=== PATIENT | female | born 2000 | race Caucasian/White ===

== ENCOUNTER 2019-11-09 15:53 | Emergency (ER) | payer OTHER, BC ==
[~2019-11-09] VITALS: Ht 167.6 cm; Wt 102.1 kg
--- OUTSIDE RECORDS SUMMARY | ~2019-11-09 | XMS ---
Demographics + + + | Address | [address] | | | [place] [address] | + + + | Home Phone | | + + + | Preferred Language | Unknown | + + + | Marital Status | Never | + + + | Sabianism Affiliation | Unknown | + + + | Race | White | + + + | Ethnic Group | Not or | + + + Author + + + | Author | [facility] | + + + | Organization | [facility] | + + + | Address | [address] | | | [place] [address] | + + + | Phone | | + + + Care Team Providers + + + + | Care Metal Crafts Teacher Name | Role | Phone | + + + + | Khloe Cummings PCP | | + + + + | Ivon Foster | PreferredProvider | | + + + + Allergies and Adverse Reactions + + + + | Name | Reaction | Notes | + + + + | NO KNOWN DRUG ALLERGIES | | | + + + + | [place] | | | + + + + | Grasses | | | + + + + | Weeds | | | + + + + | Trees | | | + + + + | Other Food or Environmental | | WEEDS TREES AND GRASS - | | Allergies | | [employer] 06/25/2016 | + + + + Plan of Treatment Not available. Medications +---------+ | | +---------+ + + + + + + | Name | Start Date | Expiration Date | SIG | Comments | + + + + + + | Singulair 10 mg | 10/16/2014 | 03/15/2015 | take 1 tablet | | | oral tablet | | | (10 mg) by oral | | | | | | route once | | | | | | daily in the | | | | | | evening for 30 | | | | | | days | | + + + + + + | ProAir HFA 90 | 10/16/2014 | 03/15/2015 | 2 puffs every 4 | | | mcg/actuation | | | hrs as needed | | | inhalation HFA | | | for shortness | | | aerosol inhaler | | | of breath or | | | | | | cough | | + + + + + + | Zithromax Z-Reji | 03/08/2016 | 03/13/2016 | take 2 tablets | | | 250 mg oral | | | (500 mg) by | | | tablet | | | oral route once | | | | | | daily for 1 | | | | | | day then 1 | | | | | | tablet (250 mg) | | | | | | by oral route | | | | | | once daily for | | | | | | 4 days | | + + + + + + | Zofran ODT 8 mg | 06/25/2016 | 06/28/2016 | take 1 tab po Q | | | oral | | | 8 hrs prn | | | tablet,disinteg | | | nausea and | | | rating | | | vomiting | | + + + + + + Problem List + +--------+ + | Description | Status | Onset | + +--------+ + | Hip pain | Active | 03/18/2014 | + +--------+ + | Dizziness | Active | 03/18/2014 | + +--------+ + | Allergic rhinitis | Active | 10/16/2014 | + +--------+ + | Asthma | Active | 10/16/2014 | + +--------+ + | 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 | 175 | 66. | | 27. | 1.9 | 90. | 98 | | 5/2 | 1:0 | | mmH | bpm | rpm | 2 F | | 5 | | 822 | 299 | 2 % | % | | 018 | 0 | mmH | g | | | | lbs | in | | 3 | | | | | | AM | g | | | | | | | | kg/ | m | | | | | | | | | | | | | | m | | | | +-----+-----+-----+-----+-----+-----+-----+-----+-----+----+-----+-----+-----+-----+ | 3/1 | 10: | 110 | 70 | 80 | 20 | 97. | 174 | 66 | | 28. | 1.9 | 91. | | | 0/2 | 09: | | mmH | bpm | rpm | 6 F | | in | | 08 | 2 | 8 % | | | 017 | 00 | mmH | g | | | | lbs | | | kg/ | m2 | | | | | AM | g | | | | | | | | m2 | | | | +-----+-----+-----+-----+-----+-----+-----+-----+-----+----+-----+-----+-----+-----+ | 11/ | 4:3 | 110 | 68 | 87 | 20 | 97. | 183 | 66 | | 29. | 1.9 | 94. | 99 | | 21/ | 6:0 | | mmH | bpm | rpm | 2 F | | in | | 536 | 661 | 3 % | % | | 201 | 0 | mmH | g | | | | lbs | | | 7 | | | | | 6 | PM | g | | | | | | | | kg/ | m | | | | | | | | | | | | | | m | | | | +-----+-----+-----+-----+-----+-----+-----+-----+-----+----+-----+-----+-----+-----+ | 9/2 | 9:4 | 118 | 72 | 116 | 20 | 96. | 149 | 66 | | 24. | 1.7 | 81. | 97 | | 8/2 | 8:0 | | mmH | | rpm | 9 F | .5 | in | | 13 | 8 | 1 % | % | | 015 | 0 | mmH | g | bpm | | | lbs | | | kg/ | m2 | | | | | AM | g | | | | | | | | m2 | | | | +-----+-----+-----+-----+-----+-----+-----+-----+-----+----+-----+-----+-----+-----+ | 7/1 | 8:5 | 110 | 70 | 70 | 20 | 98 | 158 | 66. | | 24. | 1.8 | 85. | 97 | | /20 | 1:0 | | mmH | bpm | rpm | F | | 75 | | 931 | 372 | 5 % | % | | 15 | 0 | mmH | g | | | | lbs | in | | 8 | | | | | | AM | g | | | | | | | | kg/ | m | | | | | | | | | | | | | | m | | | | +-----+-----+-----+-----+-----+-----+-----+-----+-----+----+-----+-----+-----+-----+ | 5/7 | 3:0 | 106 | 72 | 98 | 26 | 98. | 156 | 65. | | 25. | 1.8 | 87. | 98 | | /20 | 8:0 | | mmH | bpm | rpm | 4 F | | 75 | | 37 | 1 | 4 % | % | | 15 | 0 | mmH | g | | | | lbs | in | | kg/ | m2 | | | | | PM | g | | | | | | | | m2 | | | | +-----+-----+-----+-----+-----+-----+-----+-----+-----+----+-----+-----+-----+-----+ | 12/ | 8:4 | 112 | 70 | 87 | 22 | 98. | 168 | 65. | | 27. | 1.8 | 92. | 97 | | 1/2 | 9:0 | | mmH | bpm | rpm | 5 F | | 9 | | 198 | 823 | 8 % | % | | 014 | 0 | mmH | g | | | | lbs | in | | | | | | | | AM | g | | | | | | | | kg/ | m | | | | | | | | | | | | | | m | | | | +-----+-----+-----+-----+-----+-----+-----+-----+-----+----+-----+-----+-----+-----+ Social History + + + + | Name | Description | Comments | + + + + | In tenth grade | | | + + + + | Lives With | | 03/06/2014 - belkis Garcia - | | | | sister María Elena oh | | | | [place] | + + + + | Parents | | | + + + + | Tobacco | Never smoker | | + + + + | Exercises 1-3 times a week | | - [employer] 06/25/2016 | + + + + | In High School | | - [employer] 06/25/2016 | + + + + History of Procedures + + + + | Date Ordered | Description | Order Status | + + + + | 08/22/2014 12:00 AM | MEASURE BLOOD OXYGEN LEVEL | Reviewed | + + + + | 10/16/2014 12:00 AM | MEASURE BLOOD OXYGEN LEVEL | Reviewed | + + + + | 01/13/2015 12:00 AM | MEASURE BLOOD OXYGEN LEVEL | Reviewed | + + + + | 03/08/2016 12:00 AM | MEASURE BLOOD OXYGEN LEVEL | Reviewed | + + + + | 06/25/2016 10:50 AM | URINALYSIS NONAUTO W/O | Reviewed | | | SCOPE | | + + + + | 06/25/2016 10:51 AM | URINE TEST | Reviewed | + + + + | 06/25/2016 12:00 AM | US EXAM ABDOM COMPLETE | Reviewed | + + + + | 06/25/2016 12:00 AM | ECHO EXAM OF ABDOMEN | Reviewed | + + + + Results Summary + + + | Date and Description | Results | + + + | 06/25/2016 10:50 AM | Glucose. Negative Bilirubin. Negative | | | Ketones Moderate 40 Spec Grav 1.030 PH 6.0 | | | Protein Trace Urobilinogen 0.2 Nitrites | | | Negative Leukocyte Est Negative Urine | | | Color yellow Blood Trace, non-hemolyzed | + + + | 06/25/2016 10:51 AM | test Negative | + + + History Of Immunizations +-------+-------+-------+------+-------+------+-------+-------+-------+-------+-----+ | Name | Date | Mfg | Mfg | Trade | Lot# | Route | Inj | Vis | Vis | CVX | | | Admin | Name | Code | Name | | | | Given | Pub | | +-------+-------+-------+------+-------+------+-------+-------+-------+-------+-----+ | DTaP | 08/29/ | Not | NE | Not | | Not | Not | | | 107 | | | 1999 | Enter | | Enter | | Enter | Enter | 001 | 001 | | | | | ed | | ed | | ed | ed | | | | +-------+-------+-------+------+-------+------+-------+-------+-------+-------+-----+ | DTaP | 10/15/ | Not | NE | Not | | Not | Not | | | 107 | | | 1999 | Enter | | Enter | | Enter | Enter | 001 | 001 | | | | | ed | | ed | | ed | ed | | | | +-------+-------+-------+------+-------+------+-------+-------+-------+-------+-----+ | DTaP | 12/31/ | Not | NE | Not | | Not | Not | | | 107 | | | 1999 | Enter | | Enter | | Enter | Enter | 001 | 001 | | | | | ed | | ed | | ed | ed | | | | +-------+-------+-------+------+-------+------+-------+-------+-------+-------+-----+ | DTaP | | Not | NE | Not | | Not | Not | | | 107 | | | 000 | Enter | | Enter | | Enter | Enter | 001 | 001 | | | | | ed | | ed | | ed | ed | | | | +-------+-------+-------+------+-------+------+-------+-------+-------+-------+-----+ | DTaP | | Not | NE | Not | | Not | Not | | | 107 | | | 004 | Enter | | Enter | | Enter | Enter | 001 | 001 | | | | | ed | | ed | | ed | ed | | | | +-------+-------+-------+------+-------+------+-------+-------+-------+-------+-----+ | Tdap | | Not | NE | Not | | Not | Not | | | 115 | | | 010 | Enter | | Enter | | Enter | Enter | 001 | 001 | | | | | ed | | ed | | ed | ed | | | | +-------+-------+-------+------+-------+------+-------+-------+-------+-------+-----+ | Hib | 08/29/ | Not | NE | Not | | Not | Not | | | 17 | | | 1999 | Enter | | Enter | | Enter | Enter | 001 | 001 | | | | | ed | | ed | | ed | ed | | | | +-------+-------+-------+------+-------+------+-------+-------+-------+-------+-----+ | Hib | 10/15/ | Not | NE | Not | | Not | Not | | | 17 | | | 1999 | Enter | | Enter | | Enter | Enter | 001 | 001 | | | | | ed | | ed | | ed | ed | | | | +-------+-------+-------+------+-------+------+-------+-------+-------+-------+-----+ | Hib | 12/31/ | Not | NE | Not | | Not | Not | 0 | 0 | 17 | | | 1999 | Enter | | Enter | | Enter | Enter | 001 | 001 | | | | | ed | | ed | | ed | ed | | | | +-------+-------+-------+------+-------+------+-------+-------+-------+-------+-----+ | Hib | | Not | NE | Not | | Not | Not | 0 | 0 | 17 | | | 000 | Enter | | Enter | | Enter | Enter | 001 | 001 | | | | | ed | | ed | | ed | ed | | | | +-------+-------+-------+------+-------+------+-------+-------+-------+-------+-----+ | HepB | 08/29/ | Not | NE | Not | | Not | Not | 0 | 0 | 08 | | | 1999 | Enter | | Enter | | Enter | Enter | 001 | 001 | | | | | ed | | ed | | ed | ed | | | | +-------+-------+-------+------+-------+------+-------+-------+-------+-------+-----+ | HepB | 12/31/ | Not | NE | Not | | Not | Not | | | 08 | | | 1999 | Enter | | Enter | | Enter | Enter | 001 | 001 | | | | | ed | | ed | | ed | ed | | | | +-------+-------+-------+------+-------+------+-------+-------+-------+-------+-----+ | HepB | 06/29/ | Not | NE | Not | | Not | Not | | | 08 | | | 2000 | Enter | | Enter | | Enter | Enter | 001 | 001 | | | | | ed | | ed | | ed | ed | | | | +-------+-------+-------+------+-------+------+-------+-------+-------+-------+-----+ | HepB | 03/06 | Not | NE | Not | | Not | Not | | | 999 | | | /2013 | Enter | | Enter | | Enter | Enter | 001 | 001 | | | | | ed | | ed | | ed | ed | | | | +-------+-------+-------+------+-------+------+-------+-------+-------+-------+-----+ | IPV | 08/29/ | Not | NE | Not | | Not | Not | 0 | | 10 | | | 1999 | Enter | | Enter | | Enter | Enter | 001 | 001 | | | | | ed | | ed | | ed | ed | | | | +-------+-------+-------+------+-------+------+-------+-------+-------+-------+-----+ | IPV | 10/15/ | Not | NE | Not | | Not | Not | | | 10 | | | 1999 | Enter | | Enter | | Enter | Enter | 001 | 001 | | | | | ed | | ed | | ed | ed | | | | +-------+-------+-------+------+-------+------+-------+-------+-------+-------+-----+ | IPV | | Not | NE | Not | | Not | Not | | | 10 | | | 000 | Enter | | Enter | | Enter | Enter | 001 | 001 | | | | | ed | | ed | | ed | ed | | | | +-------+-------+-------+------+-------+------+-------+-------+-------+-------+-----+ | IPV | | Not | NE | Not | | Not | Not | | | 10 | | | 004 | Enter | | Enter | | Enter | Enter | 001 | 001 | | | | | ed | | ed | | ed | ed | | | | +-------+-------+-------+------+-------+------+-------+-------+-------+-------+-----+ | MMR | 06/29/ | Not | NE | Not | | Not | Not | | | 03 | | | 2000 | Enter | | Enter | | Enter | Enter | 001 | 001 | | | | | ed | | ed | | ed | ed | | | | +-------+-------+-------+------+-------+------+-------+-------+-------+-------+-----+ | MMR | | Not | NE | Not | | Not | Not | | | 03 | | | 004 | Enter | | Enter | | Enter | Enter | 001 | 001 | | | | | ed | | ed | | ed | ed | | | | +-------+-------+-------+------+-------+------+-------+-------+-------+-------+-----+ | Varic | 06/29/ | Not | NE | Not | | Not | Not | | | 21 | | albert | 2000 | Enter | | Enter | | Enter | Enter | 001 | 001 | | | | | ed | | ed | | ed | ed | | | | +-------+-------+-------+------+-------+------+-------+-------+-------+-------+-----+ | Varic | 11/01/ | Not | NE | Not | | Not | Not | 0 | | 21 | | albert | 2008 | Enter | | Enter | | Enter | Enter | 001 | 001 | | | | | ed | | ed | | ed | ed | | | | +-------+-------+-------+------+-------+------+-------+-------+-------+-------+-----+ | Hep A | 07/07/ | Not | NE | Not | | Not | Not | 0 | 0 | 83 | | | 2001 | Enter | | Enter | | Enter | Enter | 001 | 001 | | | | | ed | | ed | | ed | ed | | | | +-------+-------+-------+------+-------+------+-------+-------+-------+-------+-----+ | Hep A | | Not | NE | Not | | Not | Not | 0 | 0 | 83 | | | 002 | Enter | | Enter | | Enter | Enter | 001 | 001 | | | | | ed | | ed | | ed | ed | | | | +-------+-------+-------+------+-------+------+-------+-------+-------+-------+-----+ | Menac | | Not | NE | Not | | Not | Not | | | 136 | | tra | 010 | Enter | | Enter | | Enter | Enter | 001 | 001 | | | | | ed | | ed | | ed | ed | | | | +-------+-------+-------+------+-------+------+-------+-------+-------+-------+-----+ | Flu | 02/07 | Not | NE | Not | | Not | Not | | | 141 | | 3+ | /2007 | Enter | | Enter | | Enter | Enter | 001 | 001 | | | years | | ed | | ed | | ed | ed | | | | +-------+-------+-------+------+-------+------+-------+-------+-------+-------+-----+ History of Past Illness + + + + | Name | Date of Onset | Comments | + + + + | Asthma | | | + + + + | Pneumonia | | | + + + + | Hip pain | 03/18/2014 | | + + + + | Dizziness | 03/18/2014 | | + + + + | Allergic rhinitis | 10/16/2014 | | + + + + | Asthma | 10/16/2014 | | + + + + | Bronchiolitis | | - [facility] 06/25/2016 | + + + + | Pneumonia | | - [facility] 06/25/2016 | + + + + | Asthma | | - [facility] 06/25/2016 | + + + + | Allergies | | - [facility] 06/25/2016 | + + + + | Croup | | - [facility] 06/25/2016 | + + + + | Tonsillitis, Acute | | - [facility] 06/25/2016 | + + + + | Pityriasis Rosea | 06/05/2017 | | + + + + | Hip pain | Mar 18 2014 8:44AM | | + + + + | Dizziness | Mar 18 2014 8:44AM | | + + + + | Bilateral Eustachian Tube | Aug 22 2014 3:05PM | | | Dysfunction | | | + + + + | Allergic Rhinitis | Oct 16 2014 8:46AM | | + + + + | Asthma | Richard 2014 8:46AM | | + + + + | Bronchitis, Acute | Jan 13 2015 9:48AM | | + + + + | Bronchitis | Nov 2015 4:31PM | | + + + + | Gastroenteritis presumed | Jun 25 2016 10:09AM | | | infectious | | | + + + + | Abdominal pain, left upper | Jun 25 2016 10:09AM | | | quadrant | | | + + + + | Pityriasis Rosea | Feb 2017 8:48AM | | + + + + Payers + + + +--------+ +---------+ + | Insurance | Company | Plan Name | Plan | Policy | Policy | Start Date | | Name | Name | | Number | Number | Group | | | | | | | | Number | | + + + +--------+ +---------+ + | | [place] | | [id number] | | N/A | | | Healthcare | Healthcare | | | | | + + + +--------+ +---------+ + History of Encounters + + + + | Visit Date | Visit Type | Provider | + + + + | 06/02/2017 | Acute Illness | Khloe Gelacio Cummings PARTS CLASSIFIER | + + + + | 06/25/2016 | Acute Illness | | + + + + | 06/25/2016 | Acute Illness | | + + + + | 06/25/2016 | Acute Illness | Franchesca REESP | + + + + | 03/08/2016 | Day Appt | Khloe REESP | + + + + | 01/13/2015 | Acute Illness | Khloe REESP | + + + + | 10/16/2014 | Office Visit | Franchesca REESP | + + + + | 08/22/2014 | Same Day Appt | Chelsey Farfan MD | + + + + | 03/18/2014 | New Patient | Khloe JAIN | + + + +"
--- OUTSIDE RECORDS SUMMARY | ~2019-11-09 | XMS ---
Demographics + + + | Address | [address] | | | [place] [address] | + + + | Home Phone | | + + + | Preferred Language | Unknown | + + + | Marital Status | Never | + + + | Sabianist Affiliation | Unknown | + + + | Race | White | + + + | Ethnic Group | Not or | + + + Author + + + | Author | [facility] | + + + | Organization | [facility] | + + + | Address | [address] | | | [place] [address] | + + + | Phone | | + + + Care Team Providers + + + + | Care Tenter Frame Operator Name | Role | Phone | + + + + | Khloe Cummings PCP | | + + + + | Ivon Foster | PreferredProvider | | + + + + Allergies and Adverse Reactions + + + + | Name | Reaction | Notes | + + + + | NO KNOWN DRUG ALLERGIES | | | + + + + | [place] | | | + + + + [...] + + + + + + | Aerochamber | 01/13/2015 | 02/12/2015 | Use as directed | | | Plus Flow-Vu | | | with MDI | | | miscellaneous | | | | | | spacer | | | | | + + + + + [...] | 10/16/2014 | + +--------+ + | Pitarlene Moniquea | Active | 06/05/2017 | + +--------+ [...] 1-3 times a week | | - [facility] 06/25/2016 | + + + + | [...] | Not | 0 | 0 | 107 | | | 004 | Enter | | Enter | | Enter | Enter | 001 | 001 | | | | | ed | | ed | | ed | ed | | | | +-------+-------+-------+------+-------+------+-------+-------+-------+-------+-----+ | Tdap | | Not | NE | Not | | Not | Not | 0 | 0 | 115 | | | 010 | [...] Not | Not | 0 | | 17 | | | 1999 [...] | | | 08 | | | 1998 | Enter | | Enter | | Enter | Enter | 001 | 001 | | | | | ed | | ed | | ed | ed | | | | +-------+-------+-------+------+-------+------+-------+-------+-------+-------+-----+ | HepB | 12/31/ | Not | NE | Not | | Not | Not | | | 08 | | | 1998 | Enter | | Enter | | [...] 0 | | 10 | | | 004 | Enter | | Enter | | Enter | Enter | 001 | 001 | | | | | ed | | ed | | ed | ed | | | | +-------+-------+-------+------+-------+------+-------+-------+-------+-------+-----+ | MMR | 06/29/ | Not | NE | Not | | Not | Not | 0 | 0 | 03 | | | 2000 | Enter | | Enter | | Enter | Enter | 001 | 001 | | | | | ed | | ed | | ed | ed | | | | +-------+-------+-------+------+-------+------+-------+-------+-------+-------+-----+ | MMR | | Not | NE | Not | | Not | Not | 0 | 0 | 03 | | | 004 | [...] | | 21 | | albert | 2007 | Enter | | Enter | | Enter | Enter | 001 | 001 | | | | | ed | | ed | | ed | ed | | | | +-------+-------+-------+------+-------+------+-------+-------+-------+-------+-----+ | Hep A | 07/07/ | Not | NE | Not | | Not | Not | 0 | | 83 | | | 2001 | Enter | | Enter | | Enter | Enter | 001 | 001 | | | | | ed | | ed | | ed | ed | | | | +-------+-------+-------+------+-------+------+-------+-------+-------+-------+-----+ | Hep A | | Not | NE | Not | | Not | Not | 0 | | 83 | | | 002 | [...] | | 141 | | 3+ | /2006 | Enter | | Enter | | [...] + + + + | Asthma | Oct 16 2014 8:46AM | | + + + + | Bronchitis, Acute | Jan 13 2015 9:48AM | | + + + + | Bronchitis | Mar 08 2016 4:31PM | | + + + + | Gastroenteritis presumed | Mar 10 2016 10:09AM | | | infectious | | | + + + + | Abdominal pain, left upper | Jun 25 2016 10:09AM | | | quadrant | | | + + + + | Pityriasis Rosea | Jun 02 2017 8:48AM | | + + + [...] | | [place] | [place] | | [id number] | | N/A | | | Healthcare | Healthcare | | | | | + + + +--------+ +---------+ + History of Encounters + + + + | Visit Date | Visit Type | Provider | + + + + | 06/02/2017 | Acute Illness | Khloe JAIN | + + + + | 06/25/2016 | Acute Illness | | + + + + | 06/25/2016 | Acute Illness | | + + + + | 06/25/2016 | Acute Illness | Franchesca REESP | + + + + | 03/08/2016 | Day Appt | Khloe REESP | + + + + | 01/13/2015 | Acute Illness | Khloe JAIN | + + + + | 10/16/2014 | Office Visit | Franchesca JAIN | + + + + | 08/22/2014 | Day Appt | Chelsey Farfan MD | + + + + | 03/18/2014 | New Patient | Khloe JAIN | + + + +"
--- OUTSIDE RECORDS SUMMARY | ~2019-11-09 | XMS | Clinical Summary ---
Demographics + + + | Address | [address] | | | [place] [address] | + + + | Home Phone | | + + + | Preferred Language | Unknown | + + + | Marital Status | Single | + + + | Zoroastrianism Affiliation | NON | + + + | Race | White | + + + | Ethnic Group | Not or | + + + Author + + + | Organization | Unknown | + + + | Address | Unknown | + + + | Phone | Unavailable | + + + Care Team Providers + +------+ + | Care Industrial Engineering Technologist Name | Role | Phone | + +------+ + PCP | Unavailable | + +------+ + Source Comments [facility] is fully live on both [facility] Ambulatory and [facility] InPatient.[facility] Allergies Not on File Medications Not on file Active Problems Not on file Social History + +-------+ +--------+------+ | Tobacco Use | Types | Packs/Day | Years | Date | | | | | Used | | + +-------+ +--------+------+ | Never Assessed | | | | | + +-------+ +--------+------+ + + + | Sex Assigned at | Date Recorded | | | | + + + | Not on file | | + + + + + + + | Job Start Date | Occupation | Industry | + + + + | Not on file | Not on file | Not on file | + + + + + + + + | Travel History | Travel Start | Travel End | + + + + + + | No recent travel history available. | + + Last Filed Vital Signs Not on file Plan of Treatment + + + + + | Health Maintenance | Due Date | Last Done | Comments | + + + + + | Preconception/contra | | | | | ception counseling | 9 | | | | (one yung question) | | | | + + + + + | Pneumococcal | | | | | vaccination (1 of 1 | 5 | | | | - PPSV23) | | | | + + + + + | PERTUSSIS | | | | | (TDAP/DTAP) | 0 | | | + + + + + | Substance abuse | | | | | screening | 1 | | | + + + + + | Influenza (Flu) | | | | | vaccination (#1) | 9 | | | + + + + + Results Not on filefrom Last 3 Months"
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
== END 2019-11-09 18:14 | disposition home or self-care (01) ==
LOC: ED 15:53
DX: S93.402A Sprain of unspecified ligament of left ankle, initial encounter (principal); J45.909 Unspecified asthma, uncomplicated; W17.89XA Other fall from one level to another, initial encounter
CPT/HCPCS: 73610; 99283-25

== ENCOUNTER 2021-06-02 10:30 | Inpatient (IN) | payer OTHER ==
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
--- NOTE | 2021-06-03 11:46 | PR ---
[facility] [address] [facility] [place] [address] Signed Progress Notes IP Datetime Report Generated by CPN: 06/03/2021 11:46 PROGRESS NOTES: [id number] Impression: Reassuring Heart Rate Procedures: Artificial ROM Plan: Continue Present Management VITAL SIGNS: [id number] Vital Signs: Reviewed VS Notable Details: normotensive since arrival EXAM: [id number] Dilatation: 1.0 Effacement: 50 Station: -3 Contractions: irregular, q 1-4 min MEMBRANES: [id number] Membranes Status: Intact Comments: S/p cytotec x 6, 1cm dilated and more painful with contractions feeling increased pressure. Normotensive, asymptomatic AROM performed without difficulty yielding moderate amount of light meconium fluid FETUS A: [id number] FHR Baseline: 120 Variability: Moderate 6-25bpm Accelerations: 15X15 Decelerations: None FHR Category: Category I Presentation: Vertex Comments on Fetus A: No evidence of acidemia FETUS B: [id number] Signing Physician: Catrachita Benz DO Copies: ~ *Electronically Signed* 06/03/21 1146 CATRACHITA BENZ DO PATIENT NAME: YVES PALOMARES PROGRESS NOTE DATE OF : 98 PHYSICIAN: CATRACHITA BENZ #: [id number] REPORT IS CONFIDENTIAL AND NOT TO BE RELEASED WITHOUT AUTHORIZATION
--- NOTE | 2021-06-03 19:20 | PR ---
[facility] [facility] [address] [facility], [place] [address] Signed Progress Notes IP Datetime Report Generated by CPN: 06/03/2021 19:20 PROGRESS NOTES: [id number] Impression: Reassuring Heart Rate Procedures: Intrauterine Pressure Catheter Plan: Continue Present Management VITAL SIGNS: [id number] Vital Signs: Reviewed VS Notable Details: normotensive since arrival EXAM: [id number] Dilatation: 3.0 Effacement: 80 Station: -2 Contractions: irregular, q 1-4 min MEMBRANES: [id number] Membranes Status: Ruptured Comments: Progressing slowly since AROM. Comfortable with epidural. 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 Discussed low-dose pitocin with IUPC. IUPC placed without difficulty. FETUS A: [id number] FHR Baseline: 120 Variability: Moderate 6-25bpm Accelerations: 15X15 Decelerations: None FHR Category: Category I Presentation: Vertex Comments on Fetus A: No evidence of acidemia FETUS B: [id number] Signing Physician: Catrachita Benz DO Copies: ~ *Electronically Signed* 06/03/211919 CATRACHITA BENZ DO PATIENT NAME: YVES PALOMARES PROGRESS NOTE DATE OF : 98 PHYSICIAN: CATRACHITA BENZ DO RPT #: [id number] REPORT IS CONFIDENTIAL AND NOT TO BE RELEASED WITHOUT AUTHORIZATION
--- NOTE | 2021-06-05 08:49 | PR ---
[facility] [address] [facility] [place], [place] [address] Signed PP Progress Notes Datetime Report Generated by CPBernardo: 06/05/2021 07:39 SUBJECTIVE: [id number] Pain: Within Normal Limits Nausea/Vomiting: Denies Flatus: Yes Bowel Movement: Yes Vital Signs: [id number] Vital Signs: Reviewed; Within Normal Limits Cardiovascular: Normal Respiratory: Normal Abdomen/Uterus: Normal Lochia: Normal Breasts: Normal Extremities: Normal Progress: Normal Exam Comments: NAD, sitting on chair facetiming FOB No dyspnea/ retractions RRR Abd SNTND, FFBU Ext: trace edema, BLLE edema IMPRESSION/PLAN/PROCEDURES: [id number] Impression: Normal Progression; Difficulties; Induced Hypertension Plan: Continue Present Management; Discharge Procedures: Rhogam Progress Notes: Pt is a 20 yo PPD#1 s/p Progressing well Hgb 10.8 from 12.4 on admission No persistently elevated BP since admission Baby blood type B positive, awaiting rhogam today Anticipate DC to home with BP check in office next week Planning partner vasectomy for contraception Signing Physician: Catrachita Benz DO Copies: *Electronically Signed* 06/05/21 0739 CATRACHITA BENZ DO PATIENT NAME: YVES PALOMARES PROGRESS NOTE DATE OF : 98 PHYSICIAN: CATRACHITA BENZ DO RPT #: [id number] REPORT IS CONFIDENTIAL AND NOT TO BE RELEASED WITHOUT AUTHORIZATION [address] [address] Signed ~ *Electronically Signed* 06/05/21 0739 CATRACHITA BENZ DO PATIENT NAME: YVES PALOMARES PROGRESS NOTE DATE OF : 98 PHYSICIAN: CATRACHITA BENZ DO RPT #: [id number] REPORT IS CONFIDENTIAL AND NOT TO BE RELEASED WITHOUT AUTHORIZATION
== END 2021-06-05 11:55 | disposition home or self-care (01) | DRG 807 ==
LOC: FBC 10:30
PROVIDERS: ADMIT Obstetrics & Gynecology; ATTEND Obstetrics & Gynecology
PROC: 10907ZC Drainage of Amniotic Fluid, Therapeutic from Products of Conception, Via Natural or Artificial Opening (ICD-10-PCS; 2021-06-03)
PROC: 10H07YZ Insertion of Other Device into Products of Conception, Via Natural or Artificial Opening (ICD-10-PCS; 2021-06-03)
PROC: 3E0P7VZ Introduction of Hormone into Female Reproductive, Via Natural or Artificial Opening (ICD-10-PCS; 2021-06-03)
PROC: 3E0R3BZ Introduction of Anesthetic Agent into Spinal Canal, Percutaneous Approach (ICD-10-PCS; 2021-06-03)
PROC: 00HU33Z Insertion of Infusion Device into Spinal Canal, Percutaneous Approach (ICD-10-PCS; 2021-06-03)
PROC: 10H073Z Insertion of Monitoring Electrode into Products of Conception, Via Natural or Artificial Opening (ICD-10-PCS; 2021-06-03)
PROC: 10E0XZZ Delivery of Products of Conception, External Approach (ICD-10-PCS; principal; 2021-06-04)
PROC: 0HQ9XZZ Repair Perineum Skin, External Approach (ICD-10-PCS; 2021-06-04)
DX: O13.4 Gestational [pregnancy-induced] hypertension without significant proteinuria, complicating childbirth (principal); Z37.0 Single live birth; Z3A.38 38 weeks gestation of pregnancy; Z20.822 Contact with and (suspected) exposure to COVID-19; O99.824 Streptococcus B carrier state complicating childbirth; O70.0 First degree perineal laceration during delivery; O77.0 Labor and delivery complicated by meconium in amniotic fluid; O99.214 Obesity complicating childbirth; O69.81X0 Labor and delivery complicated by cord around neck, without compression, not applicable or unspecified; Z91.018 Allergy to other foods; Z79.899 Other long term (current) drug therapy
CPT/HCPCS: 01960; 36415; 80053; 82565; 82570; 83030; 83615; 84156; 84550; 85027; 86850; 86900; 86901; A9270; J2540; J2590; J2790; J2795; J3010; J7121; U0003

== ENCOUNTER 2022-06-09 07:18 | Emergency (ER) | payer OTHER ==
[~2022-06-09] VITALS: Ht 167.6 cm; Wt 102.1 kg
[2022-06-09] MEDS ORDERED: PRILOSEC OTC20 MG PO (08:20)
[2022-06-09] MEDS ORDERED: ONDANSETRON ODT4 MG PO (08:20)
== END 2022-06-09 08:25 | disposition home or self-care (01) ==
LOC: ED 07:18
DX: K29.70 Gastritis, unspecified, without bleeding (principal); J45.909 Unspecified asthma, uncomplicated; F17.290 Nicotine dependence, other tobacco product, uncomplicated
CPT/HCPCS: 36415; 80053; 81003; 83690; 84703; 85025; 96361; 96374; 96375; 99284-25; J1885; J2405; J7030

== ENCOUNTER 2022-07-24 07:03 | Emergency (ER) | payer OTHER ==
[~2022-07-24] VITALS: Ht 167.6 cm; Wt 107.5 kg
[~2022-07-24 07:03] MED LIST: ONDANSETRON ODT4 MG PO; PRILOSEC OTC20 MG PO
--- OUTSIDE RECORDS SUMMARY | 2022-07-24 07:09 | XMS ---
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 Anais VISIT COUNT (12 MO.) [address] [place] [address] TOTAL 3 NOTE: Visits indicate total known visits. ED/UCC VISIT TRACKING (12 MO.) 07/24/2022 07:03 [facility] TYPE: Emergency COMPLAINT: - VAGINAL BLEEDING 07/23/2022 17:28 [facility] TYPE: Emergency COMPLAINT: - VAINGAL BLEEDING 06/09/2022 07:19 [facility] [place] TYPE: Emergency COMPLAINT: - ABD PAIN, MIDDLE BACK PAIN DIAGNOSES: - Nicotine dependence, other tobacco product, uncomplicated - Unspecified asthma, uncomplicated - Gastritis, unspecified, without bleeding - Left upper quadrant pain INPATIENT VISIT TRACKING (12 MO.) No inpatient visits to display in this time frame [email or web address]
[2022-07-24] MEDS ORDERED: PRENATAL VITAM1 EACH PO (07:18)
== END 2022-07-24 09:31 | disposition home or self-care (01) ==
LOC: ED 07:03
DX: O20.0 Threatened abortion (principal); Z3A.01 Less than 8 weeks gestation of pregnancy
CPT/HCPCS: 36415; 81001; 83030; 84702; 85025; 86850; 86900; 86901; 96372; 99284; J2790

== ENCOUNTER 2023-04-29 00:44 | Inpatient (IN) | payer BC, OTHER ==
[~2023-04-29 00:44] MED LIST changes: +BUTALB-ACETAMI1 EAC2 PO; +PRENATAL VITAM1 EACH PO
[2023-04-29 01:26] LABS: HEMATOCRIT 33.2 % (35.0-50.0); HEMOGLOBIN 11.4 g/dL (12.0-18.0); MCH 27.4 (27-36); MCHC 34.2 g/dl (30-36); MCV 80.1 fl (81-99); RBC 4.15 M/ul (4.3-5.7); RDW 14.7 (10.5-15.0)
[2023-04-29 01:41] VITALS: BP 141/85
[2023-04-29 01:43] LABS: AMPHETAMINES, URINE NEGATIVE (NEGATIVE); BARBITURATES, URINE NEGATIVE (NEGATIVE); BENZODIAZEPINE, URINE NEGATIVE (NEGATIVE); BUPRENORPHINE, URINE NEGATIVE (NEGATIVE); CANNABINOID, URINE NEGATIVE (NEGATIVE); COCAINE, URINE NEGATIVE (NEGATIVE); ECSTASY, URINE NEGATIVE (NEGATIVE); FENTANYL, URINE NEGATIVE (NEGATIVE); METHADONE, URINE NEGATIVE (NEGATIVE); OPIATES, URINE NEGATIVE (NEGATIVE); OXYCODONE, URINE NEGATIVE (NEGATIVE); PHENCYCLIDINE, URINE NEGATIVE (NEGATIVE)
[2023-04-29 02:21] LABS: ABO B; RH NEGATIVE
[2023-04-29 02:22] LABS: ANTIBODY SCREEN POSITIVE
[2023-04-29 02:25] LABS: ANTIBODY IDENTIFICATION SEE COMMENTS
[2023-04-30 05:42] LABS: HEMATOCRIT 33.1 % (35.0-50.0); HEMOGLOBIN 11.2 g/dL (12.0-18.0); MCH 27.7 (27-36); MCHC 33.8 g/dl (30-36); RBC 4.04 M/ul (4.3-5.7)
[2023-04-30 07:11] LABS: ABO B; ANTIBODY SCREEN NEGATIVE; FETAL HEMOGLOBIN SCREEN NEGATIVE; RH NEGATIVE; RHIG DOSE 1; RHIG STATUS CANDIDATE
[2023-04-30 07:13] LABS: RHIG VIAL 1 RG22KO1-X
--- NOTE | 2023-04-30 11:02 | PR ---
[facility] [address] [place], [place] [address] Signed PP Progress Notes Datetime Report Generated by TASHN: 04/30/2023 11:02 SUBJECTIVE: [id number] Pain: Within Normal Limits Nausea/Vomiting: Denies Flatus: Yes Vital Signs: [id number] Vital Signs: Reviewed; Within Normal Limits Cardiovascular: Not Done Respiratory: Normal Abdomen/Uterus: Normal Lochia: Normal Vulva/Perineum: Not Done Breasts: Not Done CVA Tenderness: Not Done Extremities: Normal Incision: Not Applicable Progress: Normal IMPRESSION/PLAN/PROCEDURES: [id number] Impression: Normal Progression Plan: Discharge Procedures: None Progress Notes: S: 22 yo s/p vaginal delivery. PPD #1. Doing well. Denies MATA, CP, SOB, F/C, N/V, RUQ pain, changes in vision, vaginal discharge. Tolerating regular diet, ambulating, voiding on her own, pain controlled. O: AFVSS Abd: Soft, non-tender, non-distended. Fundus firm. Below umbilicus. Musc: EL. Minimal edema. A/P: 22 yo s/p vaginal delivery. Doing well. Although baby is not being discharged due to insufficient GBS treatment, she would like to be discharged to border status. As she is meeting all hospital milestones, will discharge to border status today. Signing Physician: Ladarius Beltran MD *Electronically Signed* 04/30/23 1102 LADARIUS BELTRAN MD PATIENT NAME: YAYO HENSONLAVONNE VINCENTE PROGRESS NOTE DATE OF : 98 PHYSICIAN: LADARIUS BELTRAN MD RPT #: [id number] REPORT IS CONFIDENTIAL AND NOT TO BE RELEASED WITHOUT AUTHORIZATION
== END 2023-04-30 12:30 | disposition home or self-care (01) | DRG 807 ==
LOC: FBCO 00:44 → FBC 00:55
PROVIDERS: ADMIT Obstetrics & Gynecology; ATTEND Obstetrics & Gynecology
PROC: 10E0XZZ Delivery of Products of Conception, External Approach (ICD-10-PCS; principal; 2023-04-29)
PROC: 3E0R3BZ Introduction of Anesthetic Agent into Spinal Canal, Percutaneous Approach (ICD-10-PCS; 2023-04-29)
PROC: 00HU33Z Insertion of Infusion Device into Spinal Canal, Percutaneous Approach (ICD-10-PCS; 2023-04-29)
DX: O99.824 Streptococcus B carrier state complicating childbirth (principal); Z37.0 Single live birth; Z3A.39 39 weeks gestation of pregnancy; O99.324 Drug use complicating childbirth; F12.90 Cannabis use, unspecified, uncomplicated
CPT/HCPCS: 01960; 36415; 80307; 83030; 85027; 86850; 86870; 86900; 86901; A9270; J2540; J2790; J7121